=== PATIENT | female | born 1965 | race American Indian/Alaskan Native ===

== ENCOUNTER 2019-09-03 16:04 | Emergency (ER) | payer SELFPAY ==
[2019-09-03 16:11] VITALS: BP 148/85
--- NOTE | 2019-09-03 18:40 | Event Note ---
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 Further treatment and workup at subsequent clinical providers discretion. Patient/guardian urged not to elope from the ED as their condition may be serious if not clinically assessed and managed. Initial orders include: UA, urine preg
== END 2019-09-04 00:15 | disposition left against medical advice (07) ==
LOC: ED 16:04
DX: R10.2 Pelvic and perineal pain (principal); Z53.21 Procedure and treatment not carried out due to patient leaving prior to being seen by health care provider